=== PATIENT | male | born 1985 | race African-American/Black ===

== ENCOUNTER 2019-04-06 19:55 | Emergency (ER) | payer OTHER ==
[~2019-04-06] VITALS: Ht 188 cm; Wt 86.2 kg
[2019-04-06 20:53] LABS: Basophils # (auto) 0.1 uL; Basophils % (auto) 0.8 % (0.0-2.0); Eosinophils # (auto) 0 uL; Eosinophils % (auto) 0.3 % (0.0-7.0); Hematocrit 42.5 % (41.0-53.0); Hemoglobin 13.9 g/dL (13.5-17.5); Lymphocytes # (auto) 0.6 uL; Mean Corpuscular Hemoglobin 26.7 pg (28.0-32.0); Mean Corpuscular Hgb Conc. 32.7 g/dL (32.0-36.0); Mean Corpuscular Volume 81.6 fL (80.0-100.0); Monocytes # (auto) 0.6 uL; Monocytes % (auto) 7.9 % (0.0-12.0); Neutrophils # (auto) 6.6 uL; Nucleated Red Blood Cells % 0.1 %; Platelet Count (auto) 147 10^3/uL (140-450); Red Blood Cells 5.21 10^6/uL (4.5-5.90); Red Cell Distribution Width 13.2 % (11.8-14.3); White Blood Cell 7.9 10^3/uL (4.4-10.8)
[2019-04-06 22:28] VITALS: BP 120/76
[2019-04-07 00:29] LABS: Anion Gap 12 (5-15); BUN/Creatinine Ratio 10.6; Blood Urea Nitrogen 12 mg/dL (7-18); Calcium 8.8 mg/dL (8.5-10.1); Carbon Dioxide 21 mmol/L (21-32); Chloride 109 mmol/L (98-107); GFR African American 97 mL/min; GFR Non-African American 80 mL/min; Glucose 112 mg/dL (74-106); Potassium 3.7 mmol/L (3.5-5.1); Sodium 142 mmol/L (136-145)
== END 2019-04-07 00:16 | disposition home or self-care (01) ==
LOC: EDBD 19:55 → ER 20:02 → EEVIPCON 20:02 → ER 04-07 00:16
DX: S05.12XA Contusion of eyeball and orbital tissues, left eye, initial encounter (principal); G40.909 Epilepsy, unspecified, not intractable, without status epilepticus; E07.9 Disorder of thyroid, unspecified; W22.8XXA Striking against or struck by other objects, initial encounter; Y93.89 Activity, other specified; Y99.8 Other external cause status; Y92.89 Other specified places as the place of occurrence of the external cause
CPT/HCPCS: 36415; 70450; 80048; 80164; 82962; 85025

== ENCOUNTER 2019-05-08 11:29 | Emergency (ER) | payer OTHER ==
[~2019-05-08] VITALS: Ht 188 cm; Wt 86.2 kg
[2019-05-08] MEDS ORDERED: SODIUM CHLORIDE 0.9% 1,000 ML IVB ONE (11:40)
[2019-05-08 13:20] LABS: Basophils # (auto) 0 uL; Eosinophils # (auto) 0 uL; Red Cell Distribution Width 13.4 % (11.8-14.3)
[2019-05-08 13:22] LABS: Basophils % (auto) 0.8 % (0.0-2.0); Eosinophils % (auto) 0.5 % (0.0-7.0); Hematocrit 44.3 % (41.0-53.0); Hemoglobin 14.3 g/dL (13.5-17.5); Lymphocytes % (auto) 18.6 % (10.0-50.0); Mean Corpuscular Hemoglobin 27.5 pg (28.0-32.0); Mean Corpuscular Hgb Conc. 32.2 g/dL (32.0-36.0); Mean Corpuscular Volume 85.3 fL (80.0-100.0); Monocytes # (auto) 0.7 uL; Monocytes % (auto) 12.8 % (0.0-12.0); Neutrophils # (auto) 3.5 uL; Neutrophils % (auto) 67.3 % (37.0-80.0); Platelet Count (auto) 156 10^3/uL (140-450); Red Blood Cells 5.19 10^6/uL (4.5-5.90); White Blood Cell 5.3 10^3/uL (4.4-10.8)
[2019-05-08 13:38] LABS: Salicylate < 1.7 mg/dL (2.8-20.0)
[2019-05-08 13:39] LABS: Alanine Aminotransferase 21 U/L (16-61); Albumin 3.8 g/dL (3.4-5.0); Anion Gap 8 (5-15); Aspartate Aminotransferase 11 U/L (15-37); BUN/Creatinine Ratio 15.8; Blood Alcohol < 3.0 mg/dL (0-5); Blood Urea Nitrogen 18 mg/dL (7-18); Calcium 8.6 mg/dL (8.5-10.1); Carbon Dioxide 27 mmol/L (21-32); Chloride 105 mmol/L (98-107); GFR African American 96 mL/min; GFR Non-African American 80 mL/min; Glucose 82 mg/dL (74-106); Potassium 3.9 mmol/L (3.5-5.1); Sodium 140 mmol/L (136-145)
[2019-05-08 13:42] LABS: Alkaline Phosphatase 65 U/L (45-117); Bilirubin, Total 0.4 mg/dL (0.2-1.0)
[2019-05-08 13:43] LABS: Acetaminophen < 2.0 ug/mL (10-30)
[2019-05-08 16:00] LABS: Alcohol, Urine < 3.0 mg/dL (0-5); Amphetamine Screen, Urine NEGATIVE (NEGATIVE); Barbiturate Scree,Urine NEGATIVE (NEGATIVE); Benzodiazephine Screen, Urine NEGATIVE (NEGATIVE); Cannabinoid Screen, Urine NEGATIVE (NEGATIVE); Cocaine Screen, Urine NEGATIVE (NEGATIVE); Opiate Scree,Urine NEGATIVE (NEGATIVE); Phencyclidine Screen, Urine NEGATIVE (NEGATIVE)
[2019-05-08 16:01] VITALS: BP 120/71
[2019-05-08 16:12] LABS: Urine Bacteria NONE SEEN /hpf (None Seen); Urine Blood Negative /uL (Negative); Urine Mucus FEW (None Seen); Urine Specific Gravity 1.008 (1.001-1.035); Urine WBC <1 /hpf (0 - 3)
== END 2019-05-08 17:56 ==
LOC: ER 11:29 → EEVIPCON 11:29 → EDBD 11:29 → ER 17:56
DX: T50.902A Poisoning by unspecified drugs, medicaments and biological substances, intentional self-harm, initial encounter (principal); R45.851 Suicidal ideations; R42 Dizziness and giddiness; R53.1 Weakness; E07.9 Disorder of thyroid, unspecified; Y92.89 Other specified places as the place of occurrence of the external cause
CPT/HCPCS: 36415; 80053; 80307; 80320; 80329; 81001; 85025; 93005; 94761; 96360; 96361; 99284; J7030